=== PATIENT | male | born 1990 | race Caucasian/White ===

== ENCOUNTER 2017-11-23 04:03 | Emergency (ER) | payer SELFPAY ==
--- NOTE | 2017-11-23 04:22 | ED ---
Substance Abuse/Use - HPI Summary HPI Summary: This is josr Michael documenting for attending Giorgio Sandhu MD. This patient is a 27 year old M brought in by police to [facility] with a chief complaint of substance abuse since early this morning. [place] and admitted to using LSD in the liquid form by applying it to his hands and licking it. According to police, the patient was acting very strangely and the patient told the police that he wanted to get checked out. The patient reports memory impairment, difficulty forming sentences, and feeling very trippy. Symptoms aggravated by nothing. Symptoms alleviated by nothing. - History Of Current Complaint Chief Complaint: EDSubstanceAbuse Stated Complaint: OVERDOSE Time Seen by Provider: 11/23/17 04:09 Hx Obtained From: Patient Ingestion History: Type/Name Of Drug - LSD Overdose Characteristics: Topical Timing Of Abuse: Binge Use Severity Initially: Mild Severity Currently: Mild Aggravating Factor(s): Nothing Alleviating Factor(s): Nothing Associated Signs And Symptoms: Altered Mental Status, Other: - memory impairment - Allergies/Home Medications Allergies/Adverse Reactions: Allergies Allergy/AdvReac Type Severity Reaction Status Date / Time No Known Allergies Allergy Verified 11/23/17 05:48 Home Medications: Home Medications NK [No Home Medications Reported] 11/23/17 [History Confirmed 11/23/17] PMH/Surg Hx/FS Hx/Imm Hx Respiratory History: Denies: Hx Chronic Obstructive Pulmonary Disease (COPD) Opthamlomology History: Denies: Hx Legally Blind EENT History: Denies: Hx Deafness Infectious Disease History: No Infectious Disease History: Denies: Traveled Outside the [place] in Last 30 Days - Family History Known Family History: Positive: None - patient denies FHx Review of Systems Negative: Fever Negative: Epistaxis Negative: Cough Negative: Vomiting All Other Systems Reviewed And Are Negative: Yes Physical Exam - Summary Physical Exam Summary: Appearance: Well-appearing, Well-nourished, lying in bed comfortable Skin: Warm, dry, no obvious rash Eyes: sclera anicteric, no conjunctival pallor ENT: mucous membranes moist Neck: deferred Respiratory: No signs of respiratory distress Cardiovascular: Appears well perfused, pulses are nml Abdomen: deferred Musculoskeletal: Moving all 4 extremities without obvious discomfort Neurological: Awake and alert, mentation is normal, speech is fluent and appropriate Psychiatric: affect is normal, does not appear anxious or depressed Triage Information Reviewed: Yes Vital Signs On Initial Exam: Initial Vitals Temp Pulse Resp BP Pulse Ox 97 F 88 18 119/70 98 11/23/17 04:06 11/23/17 04:06 11/23/17 04:06 11/23/17 04:06 11/23/17 04:06 Vital Signs Reviewed: Yes Diagnostics - Vital Signs Vital Signs Temp Pulse Resp BP Pulse Ox 11/23/17 04:06 97 F 88 18 119/70 98 - Laboratory Lab Statement: Any lab studies that have been ordered have been reviewed, and results considered in the medical decision making process. 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 - Billing Disposition and Condition Condition: IMPROVED Disposition: Home
[2017-11-23 06:04] VITALS: BP 126/79
== END 2017-11-23 06:03 | disposition home or self-care (01) ==
LOC: ED 04:03
DX: F16.10 Hallucinogen abuse, uncomplicated (principal)
CPT/HCPCS: 99283